=== PATIENT | female | born 1975 | race Hispanic/Latino ===

== ENCOUNTER 2017-09-26 10:09 | Outpatient (CLI) | payer OTHER | END 2017-09-26 10:10 | disposition home or self-care (01) | LOC: MADLABBHPM 10:09 | PROVIDERS: ATTEND Family Medicine | DX: Z00.00 Encounter for general adult medical examination without abnormal findings (principal); E11.9 Type 2 diabetes mellitus without complications; R50.9 Fever, unspecified | CPT/HCPCS: 36415; 87804 ==